=== PATIENT | male | born 1990 | race Caucasian/White ===

== ENCOUNTER 2017-08-28 04:14 | Emergency (ER) | payer BC, MEDICAID ==
[~2017-08-28] VITALS: Ht 182.9 cm; Wt 65.1 kg
[2017-08-28] MEDS ORDERED: bacitracin 15gm ointment TP ONE (04:45)
[2017-08-28 04:57] VITALS: BP 138/76
== END 2017-08-28 05:05 | disposition home or self-care (01) ==
LOC: ER 04:15
DX: L01.00 Impetigo, unspecified (principal); F17.200 Nicotine dependence, unspecified, uncomplicated; F15.10 Other stimulant abuse, uncomplicated; Z88.0 Allergy status to penicillin; Z59.0 Homelessness; Z56.0 Unemployment, unspecified
CPT/HCPCS: 99283; A6446